=== PATIENT | male | born 1935 | race Caucasian/White ===

== ENCOUNTER 2016-12-02 07:00 | Emergency (ER) | payer MEDICARE, BC ==
[2016-12-02] MEDS ORDERED: SODIUM CHLORIDE 0.9% FLUSH 10 ML SOL IV PRN (07:15)
[2016-12-02] MEDS ORDERED: CLONIDINE 0.1 MG TAB ONE (07:18)
[2016-12-02] MEDS ORDERED: CLONIDINE 0.1 MG TAB PO ONE (07:20)
[2016-12-02 07:26] LABS: HEMATOCRIT 50 % (39-53); MEAN CORPUSCULAR HGB CONC 33.7 gm/dl (32.0-36.0); MEAN CORPUSCULAR VOLUME 86 fL (80-100)
[2016-12-02 07:38] LABS: APPEARANCE,URINE Slightly Cloudy; BILIRUBIN,URINE NEGATIVE (NEGATIVE); COLOR,URINE Yellow; GLUCOSE, URINE (UA) NEGATIVE (NEGATIVE); KETONES,URINE NEGATIVE (NEGATIVE); LEUKOCYTE ESTERASE ,URINE TRACE (NEGATIVE); NITRATE,URINE NEGATIVE (NEGATIVE); OCCULT BLOOD,URINE TRACE LYSED (NEG-TRACE); UROBILINOGEN,URINE 0.2 (0.2-1.0 EU)
[2016-12-02 07:42] LABS: EOSINOPHILS % (MANUAL) 0 % (0-9)
[2016-12-02 07:43] LABS: LYMPHOCYTES % (MANUAL) 9 % (10-50); NORMAL RBCS PRESENT
[2016-12-02 07:48] LABS: ALBUMIN 3.8 gm/dl (3.4-5.0); ALT 28 IU/L (14-63); CALCIUM 9.9 mg/dl (8.5-10.1); GLOM FILT RATE 29 mL/min (>60); MAGNESIUM 1.8 mg/dl (1.8-2.4); POTASSIUM 4.5 mMol/L (3.5-5.1); SODIUM 138 mMol/L (136-145)
[2016-12-02 07:49] LABS: RBC,URINE 0-2 (0-3AV/HPF)
[2016-12-02 07:52] LABS: BASOPHILS % (MANUAL) 0 % (0-3)
[2016-12-02 08:02] VITALS: O2SAT 95
[2016-12-02 08:03] VITALS: BP 159/87; PULSE 87; RESP 25; TEMP 97
== END 2016-12-02 07:47 | disposition short-term general hospital (02) | DRG 65 ==
LOC: ED 07:00
DX: I61.0 Nontraumatic intracerebral hemorrhage in hemisphere, subcortical (principal); G81.94 Hemiplegia, unspecified affecting left nondominant side; R47.01 Aphasia; R29.810 Facial weakness; R47.81 Slurred speech; R29.713 NIHSS score 13
CPT/HCPCS: 70450; 80053; 81001; 82550; 83735; 84484; 85007; 85027; 85610; 99291